=== PATIENT | female | born 1985 | race American Indian/Alaskan Native ===

== ENCOUNTER 2025-05-11 06:04 | Day surgery (SDC) | payer OTHER ==
[~2025-05-11] VITALS: Ht 162.6 cm; Wt 65.0 kg
[~2025-05-11 06:04] MED LIST: LACTATED RINGER'S 1,000 ML IV SCH
[2025-05-11 06:22] VITALS: BP 104/66
[2025-05-11] MEDS ORDERED: IBLOOD GLUCOSE TEST STRIP 1 EA TEST VI PRN (07:00)
[2025-05-11] MEDS ORDERED: LIDOCAINE HCL 1% 5 ML SDV INJ ONE (07:00)
[2025-05-11] MEDS ORDERED: LIDOCAINE HCL 1% 30 ML SDV ONE (07:12)
[2025-05-11] MEDS ORDERED: MIDAZOLAM HCL 2 MG/2 ML VIAL ONE (07:13)
[2025-05-11 07:55] VITALS: BP 100/64
[2025-05-11] MEDS ORDERED: FAMOTIDINE 20 MG/ 2 ML VIAL IV PRN (08:00)
[2025-05-11] MEDS ORDERED: PROCHLORPERAZINE EDISYLATE 10 MG/2 ML VIAL IV PRN (08:00)
[2025-05-11] MEDS ORDERED: MAGNESIUM HYDROXIDE/AL HYDROX 30 ML CUP PO PRN (08:00)
[2025-05-11] MEDS ORDERED: NALOXONE HCL 0.4 MG SYR IV PRN (08:00)
[2025-05-11] MEDS ORDERED: OXYCODONE/APAP 5/325 TAB PO PRN (08:00)
--- NOTE | 2025-05-11 08:11 | NUR ---
0748- PT ARRIVES FROM OR. PT IS AWAKE AND SITTING UP. PT DENIES PAIN AND NAUSEA. BEDSIDE REPORT RECIEVED FROM RANDOLPH MAURICIO. PT TO GET DRESSED. PT GOT DRESSED WITH NO ISSUES. 0756- PT IS DRESSED. IV REMOVED. VITAL SIGNS OBTAINED. PT DENIES PAIN AND NAUSEA. DR. PÉREZ CAME INTO THE ROOM AND SPOKE WITH PT ABOUT FOLLOW-UP CARE, AND PLAN MOVING FORWARD. PT VERBALIZED UNDERSTANDING. PT SIGNIFICANT OTHER AT BEDSIDE. 0758- PT IS ABLE TO TRANSFER TO WHEELCHAIR WITH A STEADY AND EVEN GAIT. PT DENIES QUESTIONS OR CONERNS. PT DC'D FROM DAY SURGERY AT THIS TIME.
--- NOTE | 2025-05-11 09:22 | NUR ---
0905- PT CALLED. VERBAL DISCHARGE INFORMATION GONE OVER. PT TOLD THAT LUCSERAFIN WAS AT THE HOSPITAL. PT STATES THAT WILL BE IN BEFORE 1600 TO [facility] INSIDE THE PRESCIPTION. PT IS UNDERSTANDING OF INFORMATION.
--- NOTE | 2025-05-13 23:27 | OR ---
[facility] [address] [place], [place] [address] Signed DATE OF OPERATION: 05/11/2025 SURGEON: Cintia Schmidt DO PREOPERATIVE DIAGNOSES: 1. Cervical polyp. 2. Abnormal Pap. POSTOPERATIVE DIAGNOSES: 1. Cervical polyp. 2. Abnormal Pap. PROCEDURE PERFORMED: Cervical polypectomy. ANESTHESIA: Conscious sedation. ESTIMATED BLOOD LOSS: 1 mL. SPECIMEN: Cervical polyp. FINDINGS: Normal external genitalia. Normal clitoris, urethral meatus, bilateral [place]'s, Bartholin's glands. Normal perineum and anus. Normal vagina with normal caliber and discharge. The cervix appears grossly normal. However, there is a small cervical polyp at the internal os on the anterior aspect of the squamocolumnar junction as previously seen on colposcopy. The polyp was removed in total and hemostatic at the end of the case. COMPLICATIONS: None. INDICATIONS: Ms. Barry is a very pleasant 39-year-old female, who recently had an abnormal Pap smear and underwent colposcopy. No squamous cell abnormalities noted or acetowhite changes. However, there was an incidentally noted cervical polyp. The patient was very anxious and requested that this be excised in the OR under sedation. Risks, benefits, and Electronically Signed By: CINTIA SCHMIDT DO (JD) 05/13/25 2327 PATIENT NAME: AG BARRY OPERATIVE REPORT DATE OF : 85 REPORT #: [id number] PHYSICIAN: CINTIA SCHMIDT (JUDY) PCP: CINTIA SCHMIDT (JUDY) DO REPORT IS CONFIDENTIAL AND NOT TO BE RELEASED WITHOUT AUTHORIZATION [facility] [address] [place] [address] [place], [place] [address] Signed alternatives were discussed in detail with the patient. The patient understands and wished to proceed with the procedure. DESCRIPTION OF PROCEDURE: The patient was taken to the OR. A time-out was performed to confirm correct patient, correct procedure. The patient positioned herself and was prepped and draped in the dorsal lithotomy with her feet in Yellofin stirrups. Versed was administered by Anesthesia. A weighted speculum was placed in the vagina and the anterior lip of the cervix was grasped with an Allis clamp. Cervical polyp was noted. No other abnormalities in the genital tract were appreciated. Polyp forceps were used to grasp and remove the cervical polyp in total without difficulty. Some oozing at the biopsy site was made hemostatic with judicious use of Bovie electrocautery. Monsel's solution was applied to the cervix and excellent hemostasis was appreciated. The patient was then taken to the PACU in good and stable condition. Sponge, needle, and instrument count was correct x2 at the end of the procedure. No preoperative antibiotics or heparin was indicated. DO GIN Mehta/BREEZY /[id number] Copies: ~ Electronically Signed By: CINTIA SCHMIDT DO (JD) 05/13/25 2327 PATIENT NAME: AG BARRY OPERATIVE REPORT DATE OF : 85 REPORT #: [id number] PHYSICIAN: CINTIA SCHMIDT (JUDY) PCP: CINTIA SCHMIDT) REPORT IS CONFIDENTIAL AND NOT TO BE RELEASED WITHOUT AUTHORIZATION
--- NOTE | 2025-05-15 12:47 | NUR ---
05/15/25 1247 Emma Segovia NO PACU TIME, PT SENT BACK TO DAYSURGERY
--- NOTE | 2025-05-16 12:18 | PATH ---
[facility] [address] [place], [place] [address] Signed SPECIMEN(S): A CERVICAL POLYP SPECIMEN SOURCE: A. CERVICAL POLYP CLINICAL HISTORY: Cervical polyp FINAL PATHOLOGIC DIAGNOSIS: Cervical polyp: - Benign endocervical polyp with reactive features and focal squamous metaplasia. - Negative for definite dysplasia. - Mucoinflammatory debris. JVR:clv MICROSCOPIC EXAMINATION: Histologic sections of all submitted blocks are examined by light microscopy. These findings, together with the gross examination, support the pathologic diagnosis. GROSS DESCRIPTION: The specimen, labeled and designated "Jayden cervical polyp," is received in formalin and consists of pink-vasquez soft tissue fragment that measure 0.6 x 0.3 x 0.3 cm. Entirely submitted in (A1). JS (under the direct supervision of a pathologist) The Gross Description was prepared using a voice recognition system. The report was reviewed for accuracy; however, sound-alike word errors, addition and/or deletions may occur. If there is any question about this report, please contact Client Services. PERFORMING LABORATORY: Technical component was performed by [facility], [address] [place] [id number] (CLIA# [id number]). Professional interpretation was performed by [facility], [address] [place] [id number] (CLIA#: [id number]). Diagnostician: Marcial Bundy MD Pathologist Electronically Signed 05/16/2025 PATIENT NAME: AG BARRY PATHOLOGY DATE OF : 85 REPORT #: [id number] PHYSICIAN: [facility] PATHOLOG[facility] PCP: CINTIA PÉREZ) DO REPORT IS CONFIDENTIAL AND NOT TO BE RELEASED WITHOUT AUTHORIZATION [address] [place], [place] [address] Signed Copies: ~ PATIENT NAME: AG BARRY PATHOLOGY DATE OF : [birth year] REPORT #: [id number] PHYSICIAN: [facility] PATHOLOG[facility] PCP: CINTIA PÉREZ (JUDY) DO REPORT IS CONFIDENTIAL AND NOT TO BE RELEASED WITHOUT AUTHORIZATION
== END 2025-05-11 07:58 | disposition home or self-care (01) ==
LOC: DS 06:04
PROVIDERS: ATTEND Obstetrics & Gynecology
PROC: 0UBC7ZX Excision of Cervix, Via Natural or Artificial Opening, Diagnostic (ICD-10-PCS; principal; 2025-05-11 07:30)
DX: N84.1 Polyp of cervix uteri (principal)
CPT/HCPCS: 00940; 88305; J2250